=== PATIENT | male | born 1960 | race Caucasian/White ===

== ENCOUNTER → 2025-02-05 | Outpatient (CLI) | payer BC ==
[2025-02-05 10:10] LABS: Partial Thromboplastin Time 24.9 sec (22.0-30.0); Prothrombin Time 10.8 sec (10.0-12.5)
[2025-02-05 14:55] LABS: HCT 49.4 % (39.6-50.0); HGB 16.1 g/dL (13.0-17.0); MCH 29.6 pg (27.0-32.0); MCHC 32.6 g/dL (32.0-37.0); MCV 90.8 FL (80.0-97.0); Mean Platelet Volume 11.3 FL (9.5-12.2); NRBC Per 100 WBC 0 X 10*3/uL (0.00-0.01); Platelet Count 271 X 10*3/uL (140-440); RBC 5.44 X 10*6/uL (4.40-5.60); RDW 13.9 % (11.5-14.5); WBC 8.99 X 10*3/uL (4.50-10.00)
[2025-02-05 15:16] LABS: ALT 12 U/L (10-49); AST 17 U/L (14-35); Albumin 3.9 g/dL (3.8-4.9); Albumin/Globulin Ratio 1.95 Ratio (1.60-3.17); Alkaline Phosphatase 62 U/L (41-126); Blood Urea Nitrogen 17.8 mg/dL (9.0-27.0); Calcium 9.3 mg/dL (8.7-10.3); Carbon Dioxide 25.8 mmol/L (21.6-31.8); Chloride 106 mmol/L (96-109); Glucose 102 mg/dL (70-110); Potassium 4.5 mmol/L (3.5-5.5); Sodium 140 mmol/L (135-145); Total Bilirubin 0.4 mg/dL (0.3-1.2); Total Protein 5.9 g/dL (6.2-8.2)
== END | disposition home or self-care (01) ==
LOC: LABPAT 09:03
PROVIDERS: ATTEND Orthopaedic Surgery
DX: Z01.812 Encounter for preprocedural laboratory examination (principal); Z22.322 Carrier or suspected carrier of Methicillin resistant Staphylococcus aureus; M16.11 Unilateral primary osteoarthritis, right hip
CPT/HCPCS: 80053; 83036; 85027; 85610; 85730; 86850; 86900; 86901; 87070; 93005

== ENCOUNTER 2025-02-16 05:37 | Day surgery (SDC) | payer BC ==
[2025-02-13 11:24] VITALS: BMI 23.5
[2025-02-16] MEDS: IV FLUID CONTINUATION 1,000 ML IV ONE ×2 (05:57)
[2025-02-16] MEDS: DOCUSATE 100 MG CAP PO PRN (05:59)
[2025-02-16] MEDS: ACETAMINOPHEN TAB 500 MG TAB PO PRN (05:59)
[2025-02-16] MEDS: oxyCODONE ER 10 MG TAB.ER.12H PO PRN (05:59)
[2025-02-16] MEDS ORDERED: TRANEXAMIC 1,000 MG/100ML-NACL 1,000 MG in SALINE 1 100ML.BAG IV PRN (06:00)
[2025-02-16] MEDS ORDERED: TRANEXAMIC 1,000 MG/100ML-NACL 1,000 MG in SALINE 1 100ML.BAG IVPB PRN (06:00)
[2025-02-16] MEDS: FAMOTIDINE 20 MG/2 ML VIAL IVP PRN (06:12)
[2025-02-16] MEDS: ONDANSETRON 4 MG/2 ML VIAL IVP PRN (06:12)
[2025-02-16] MEDS: KETOROLAC 15 MG/ML 1 ML VIAL IVP PRN (06:12)
[2025-02-16] MEDS: DEXAMETHASONE SOD PHOSPHATE 10 MG/ML 1 ML VIAL IV PRN (06:12)
[2025-02-16] MEDS: MIDAZOLAM 2 MG/2 ML VIAL IV PRN (06:24)
[2025-02-16] MEDS: LACTATED RINGERS 1,000 ML IV SCH (06:32)
--- NOTE | 2025-02-16 06:38 | P.ANPRN ---
Procedure Note - Anesthesia - Nerve Block Performed Right Jarvis Single Time Out Performed: Yes Date of Procedure: 02/16/25 Procedure Start Time: : Procedure Stop Time: :28 Location of Patient: PreOp Indication: Acute Post-Operative Pain, Analgesia, Requested by Surgeon Sedation Type: Sedate with meaningful contact maintained Preparation: Sterile Prep Position: Supine Catheter: None Needle Types: Pajunk Needle Gauge: 21 Ultrasound used to visualize needle placement: Yes Ultrasound used to observe medication spread: Yes Injectate: 0.5% Ropivacaine (see comment for volume) ([id number]) Blood Aspirated: No Pain Paresthesia on Injection Noted: No Resistance on Injection: Normal Image Stored and Saved: Yes Events: Uneventful and Well Tolerated
[2025-02-16] MEDS: IPRATROPIUM-ALBUTEROL 3 ML NEB INHALATION STA (06:42)
[2025-02-16] MEDS ORDERED: fentaNYL (PF) 50 MCG/ML 2 ML AMP ONE (06:55)
[2025-02-16] MEDS ORDERED: DEXAMETHASONE SOD PHOSPHATE 4 MG/ML 1 ML VIAL ONE (06:55)
[2025-02-16] MEDS ORDERED: SUCCINYLCHOLINE CHLORIDE 200 MG/10 ML VIAL IV ONE (06:55)
[2025-02-16] MEDS ORDERED: PROPOFOL 10 MG/ML 20 ML VIAL IV ONE (06:55)
[2025-02-16] MEDS ORDERED: ePHEDrine 50 MG/ML 1 ML VIAL ONE (06:55)
[2025-02-16] MEDS ORDERED: GLYCOPYRROLATE 0.2 MG/ML 2 ML VIAL ONE (06:55)
[2025-02-16] MEDS ORDERED: PHENYLEPHRINE-0.9% NACL SYG 1,000 MCG/10 ML SYRINGE ONE (06:55)
[2025-02-16] MEDS ORDERED: NEOSTIGMINE 1 MG/ML 10 ML VIAL ONE (06:55)
[2025-02-16] MEDS ORDERED: ROPIVACAINE 5 MG/ML 30 ML VIAL ONE (06:55)
[2025-02-16] MEDS ORDERED: TRANEXAMIC 1,000 MG/100ML-NACL PREMIX BAG ONE (06:55)
[2025-02-16] MEDS ORDERED: LIDOCAINE 1% INJ 10MG/ML (20 ML MDV) ONE (06:55)
[2025-02-16] MEDS ORDERED: ROCURONIUM 10 MG/ML (5 ML VIAL) IV ONE (06:55)
[2025-02-16] MEDS: ceFAZolin 2 GM in DEXTROSE 5% IN WATER 50 ML IVPB PRN (07:00)
[2025-02-16] MEDS ORDERED: HYDROmorphone 0.5 MG/0.5 ML SYRINGE IVP PRN ×3 (07:00→08:41)
[2025-02-16] MEDS: ROPIVACAINE/EPI/CLONIDINE/KET 50 ML SYRINGE MISCELLANE PRN (07:32)
[2025-02-16] MEDS: LACTATED RINGERS 1,000 ML IV ONE (08:22)
[2025-02-16] MEDS ORDERED: diazePAM 5 MG TAB PO PRN ×2 (08:41)
[2025-02-16] MEDS ORDERED: HYDROcodone/APAP 10-325MG 1 EACH TAB PO PRN (08:41)
[2025-02-16] MEDS ORDERED: NALOXONE 0.4 MG/ML 1 ML VIAL IV PRN (08:41)
[2025-02-16] MEDS ORDERED: HYDROmorphone 2 MG/ML 1 ML SYRINGE IVP PRN (08:41)
[2025-02-16] MEDS ORDERED: MAGNESIUM HYDROXIDE 2,400 MG/30 ML CUP PO PRN (08:41)
[2025-02-16] MEDS ORDERED: TEMAZEPAM 15 MG CAP PO PRN (08:41)
[2025-02-16] MEDS ORDERED: hydrOXYzine pamoate 25 MG CAP PO PRN (08:41)
[2025-02-16] MEDS ORDERED: ONDANSETRON 4 MG/2 ML VIAL IVP PRN (08:41)
--- NOTE | 2025-02-16 08:41 | P.OP ---
Date of Procedure: 02/16/25 Preoperative Diagnosis: 1. Severe right hip osteoarthritis 2. History of cigarette smoking Postoperative Diagnosis: Same Procedure(s) Performed: Right direct anterior total hip arthroplasty Implants: 1. Daniella Trident II Acetabular Cup, Size #52 2. [place]a Insignia Size #6 Femoral Stem, Standard Offset 3. Biolox delta femoral head, 36 mm, - 5 mm neck Anesthesia: HECTORA, regional Surgeon: Giancarlo Huerta [employer] Vice President #1: Tony Yusuf Estimated Blood Loss (ml): 300 IV fluids (ml): 800 Pathology: none sent Condition: stable Disposition: PACU Indications for Procedure: I had a long discussion with the patient in the office on the potential risks and complications of an elective total hip replacement through a direct anterior approach. Risks discussed include, but are certainly not limited to, risks from anesthesia, superficial infection requiring local wound care or antibiotics, deep fany-prosthetic joint infection and the treatment required to eradicate infection, intraoperative fracture, postoperative periprosthetic fracture, damage to local blood vessels or nerves particularly the lateral femoral cutaneous nerve, delayed wound healing requiring local wound care or possibly surgical debridement, hip dislocation, leg length discrepancy, soft tissue irritation around the total hip implant such as iliopsoas tendinitis or trochanteric bursitis, wear and osteolysis from the implants, squeaking or audible noises, groin pain, thigh pain, heterotopic ossification, stiffness, aseptic loosening of the implants, dissatisfaction with surgical outcome, need for revision surgery, DVT, PE, swelling of the operative extremity, acute coronary event, stroke, failure to thrive, and possibly loss of life or limb. The patient understands that while these are the most common complications after an elective hip replacement there are certainly other less common complications possible. They were given ample time to ask questions regarding the potential complications of a hip replacement. Following our discussion the patient provided their verbal and written consent to go forward with an elective total hip replacement. I had a long discussion with the patient and his in the office on the risks of smoking and elective total joint arthroplasty. He was advised to quit smoking completely before surgery to help lower his risk of complication. At his preoperative appointment he assured me that he was quitting smoking and would not be smoking at the time of surgery. This morning the patient states that he has resumed smoking but has cut back. We discussed both delaying his surgery versus proceeding. The patient was informed of his elevated risk of having a complication particularly delayed wound healing and infection. He also acknowledged that he told me he had quit in the office prior to scheduling surgery. After hearing the potential risks and complications the patient made an informed decision to proceed with surgery this morning. Both the patient and his stated that he would quit smoking in the postoperative period to help lower the risk of complication. Operative Findings: Severe right hip arthritis with complete loss of joint space on the femoral head and acetabulum. Description of Procedure: The patient was identified in the preoperative holding area and the correct hip was marked with my initials. I reviewed the procedure and consent with the patient. All of their questions were answered. The patient was then brought back into the operating room by anesthesia. While on the [facility] anesthesia was administered by the anesthesia team. Preoperative antibiotics and tranexamic acid were also given. After the patient was under anesthesia I examined their ankles to determine their preoperative leg length discrepancy. The skin over the anterior aspect of the hip was shaved to remove hair over the site of planned incision. Both feet and ankles were padded with webril and boots for the Momence were applied. The patient was then carefully transferred onto the Momence table. A perineal post was immediately placed. The arms were placed on arm holders and were well-padded. Both boots were secured to the spars on the Momence table. The patient was positioned so that the pelvis was centered over the post. Nonsterile drapes were applied. A timeout was performed identifying the correct patient, operative extremity, and procedure. At this point fluoroscopy was brought in to take preoperative images of the pelvis and operative hip. Using the standing AP pelvis from the office as a template, a comparable image was obtained with fluoroscopy. A metallic bar was used to create a bi-ischial line for use as a reference to leg length adjustments during the procedure. Global offset was also measured on both the operative and nonoperative leg. Fluoroscopy was then brought out and a pre-scrub using a chlorhexidine scrub brush was performed. The operative limb was then prepped and draped in the standard sterile fashion. An anterior longitudinal incision was made lateral and distal to the ASIS. The skin and subcutaneous tissues were incised sharply. The underlying tensor fascia was identified and incised in its midportion. The fascia was dissected free from the underlying muscle and the muscle belly was retracted. A blunt tipped cobra retractor was placed over the superior neck under the muscle fibers of the gluteus minimus. The deep enveloping fascia of the tensor was incised. The anterior leash of vessels were then identified and cauterized. The fascia between the rectus and the capsule was then incised and the pre-capsular fat was excised. A second Cobra was placed inferior to the neck. The interval between the rectus and iliocapsularis and the hip capsule was developed and a retractor was placed carefully over the anterior rim of the acetabulum. A T-shaped anterior capsulotomy was performed. The superior capsular leaflet was left in place in the inferior capsular flap was excised. The Cobra retractors were placed intracapsularly. We then made a femoral neck osteotomy according to preoperative and intraoperative templating and confirmed the level of the osteotomy using fluoroscopic imaging. The femoral head was removed, passed off to the back table, and sized. The superior capsular flap was excised. Retractors were placed circumferentially exposing the acetabulum. We then circumferentially debrided the acetabulum free of labrum and osteophytes. The pulvinar was removed to fully visualize the cotyloid fossa. We then sequentia lly reamed to achieve peripheral fit and excellent bleeding subchondral bone. The socket was thoroughly irrigated. The acetabular component was impacted into the appropriate position using fluoroscopy to guide version, inclination, and depth of insertion taking care to have a comparable image of the AP pelvis to the standing image taken in the office. An excellent press-fit was achieved and final position was confirmed using fluoroscopy. The press fit was augmented with a bony cancellus dome screw. The liner was then impacted into the socket. Attention was then turned to the femur. The remnant dorsal lateral capsule was excised. The short external rotators were visible and protected. A bone hook was used to confirm appropriate translation of the trochanter away from the acetabulum. The leg was then extended and adducted and the bone hook was used to elevate the femur for broaching. A box osteotome and blunt tipped canal sound was then utilized to gain access to the femoral canal. We then sequentially broached the femur in appropriate anteversion until excellent torsional stability was achieved. The neck cut was brought flush to the trial broach with a calcar planar. A trial neck and head were then placed onto the broach and the hip was atraumatically reduced under direct visualization. External rotation to 90 was performed to assess stability. Fluoroscopy was b rought in. An AP and lateral fluoroscopic image of the proximal femur was obtained to assess position and fill of the trial broach. An AP of the pelvis was then obtained and matched to the preoperative image taken. A bi-ischial bar was then placed and measurements were taken to assess changes in length and offset. The hip was then carefully dislocated, the proximal femur was exposed, and the trial implants were removed. The wound and proximal femur was thoroughly irrigated using sterile saline and pulsatile lavage. The final femoral implant was dispensed and gently tapped into place generating an excellent press-fit. The trunnion was cleansed and the final head was tapped into place to engage the Barrera taper. The acetabulum was irrigated and visualized to be free of debris. The hip was carefully reduced. Stability was checked clinically with external rotation to 90 and there was no evidence of instability. Final fluoroscopic images were taken. The wound was then thoroughly irrigated and soaked with a dilute Betadine rinse for 3 minutes. 3 L of sterile saline was irrigated through the wound using pulsatile lavage. Local anesthetic cocktail was injected into the soft tissues around the surgical field. The wound was then closed in layers. A sterile dressing was placed over the surgical incision. The drapes were taken down and the patient was carefully transferred off of the Momence table. Following removal of the boots the leg lengths felt acceptable. The patient was then taken to recovery room having tolerated the procedure well. Tony Yusuf PA-C was required as a skilled ssn/ssbn assistant navigator due to the complexity of surgery for patient positioning, draping, exposure, retraction, closure of wound and application of dressing. PLAN: The patient can weight-bear as tolerated on the operative extremity. 2 doses of postoperative antibiotics. DVT prophylaxis with aspirin 81 mg twice a day based on preoperative risk stratification. Physical therapy for gait training.
--- NOTE | 2025-02-16 08:43 | FL ---
EXAMINATION TYPE: FL guidance operating room, XR Hip Limited RT DATE OF EXAM: 02/16/2025 8:38 AM COMPARISON: Pre Operative Images if available both CT/MRI or plain film CLINICAL INDICATION: Male, 64 years old with history of Rt Hip-Ant; TECHNIQUE: FL guidance operating room, XR Hip Limited RT, multiple fluoroscopic images provided for p rocedure. DAP: 1.7868 mGym2 Gycm2 uGym2 cGycm2 or equivalent. FINDINGS: Fluoroscopic images during internal fixation/arthroplasty demonstrate hardware in appropriate positio n. Hardware appears intact. No immediate complication identified. IMPRESSION: 1. No evidence for intraoperative complication. 2. Please see the operative/procedural note for further details. [facility], , 02/16/2025 8:41 AM
[2025-02-16] MEDS ORDERED: NICOTINE 21MG/24HR PATCH TRANSDERM PRN (12:27)
--- NOTE | 2025-02-16 12:28 | P.CONS ---
History of Present Illness - Reason for Consult Consult date: 02/16/25 Medical Management - History of Present Illness History of present illness; 64-year-old man with PMH of hypertension, cataracts and is a current 1 pack/day cigarette smoker with been following with Dr. Huerta for osteoarthritis of his right hip. Presented today to undergo scheduled right total hip arthroplasty. Patient is now postop with no known surgical complications. Patient is sitting up in bed resting with no complaints of pain. Patient reports absence of fever, chills, weight loss, chest pain, palpitations, diaphoresis, dyspnea, cough, nausea, vomiting, constipation, diarrhea, abdominal pain, weakness, myalgia, dizziness, headache, and dysuria. Internal medicine was consulted for medical management. Initial lab workup from 02/05/2025 showed WBCs 8.99, hemoglobin 16.1, hematocrit 49.4, platelet 271; 140, potassium 4.5, BUN 17.8, creatinine 1.0, calcium 9.3, total bilirubin 0.4, AST 17, ALT 12, alkaline phosphatase 62 Postoperative hip x-ray independently read and reviewed showed no evidence of intraoperative complication and hardware intact and in the appropriate position REVIEW OF SYSTEMS: All systems reviewed, pertinent positives and negatives noted in HPI. All other symptoms are negative. PHYSICAL EXAMINATION: Vitals reviewed GENERAL: No acute distress. Well developed, well nourished. HEENT: Pupils are round and equally reacting to light. EOMI. No scleral icterus. Normocephalic, atraumatic. No pharyngeal erythema. No thyromegaly. CARDIOVASCULAR: S1 and S2 present. No murmurs, rubs, or gallops. PULMONARY: Chest is clear to auscultation, no wheezing, rhonchi, or crackles. ABDOMEN: Soft, nontender, nondistended, normoactive bowel sounds. No palpable organomegaly. MUSCULOSKELETAL: No apparent joint swelling and deformities. Bandage over the right hip without erythema or drainage EXTREMITIES: No apparent cyanosis, clubbing, or pedal edema. NEUROLOGICAL: The patient is alert and oriented x3, Gross neurological examination did not reveal any focal deficits. 5/5 strength bilateral UE and LE. SKIN: No apparent rashes. Assessment and plan 64-year-old man with PMH of hypertension, cataracts and is a current 1 pack/day cigarette smoker with been following with Dr. Huerta for osteoarthritis of his right hip. Presented today to undergo scheduled right total hip arthroplasty. Chronic Medical Conditions #Essential hypertension -Hold home LisinoprilHCTZ 10-12.5 mg, reassess BP tomorrow morning -BMP pending #Tobacco addiction -Currently smokes 1 packs daily -Counseled patient on smoking cessation -Denied desire for nicotine patch, will make 21mg/24hr patch available as needed #Total right hip arthroplasty -Pain management and DVT prophylaxis per primary surgical team - CMP pending He is medically optimized for discharge. We will continue to follow for the duration of his stay. Thank you very much for this consult. F: IV LR 20 cc/hr E: Replete as needed N: Regular diet DVT ppx: per primary surgical team Code status: Full code Patient is stable from medical stand point Follow up CBC and BMP in AM Dictation was produced using [employer] dictation software. Please excuse any grammatical, word or spelling errors. Derian Cleary MD PGY-1 IM I have seen and evaluated the patient today. Discussed with the resident and agree with the residents finding and plan as documented in the resident's note. Changes highlighted in blue font. Past Medical History Past Medical History: Hypertension, Osteoarthritis (OA) History of Any Multi-Drug Resistant Organisms: None Reported Past Surgical History: Tonsillectomy Past Anesthesia/Blood Transfusion Reactions: No Reported Reaction Smoking Status: Current every day smoker - Past Family History Father Family Medical History: Cancer Additional Family Medical History / Comment(s): SKIN Medications and Allergies Home Medications Medication Instructions Recorded Confirmed Type Acyclovir [Zovirax] 800 mg PO BID PRN 02/13/25 02/16/25 History Elderberry Fruit and Flower [Black 1 each PO DAILY 02/13/25 02/16/25 History Elderberry 575 mg Cap] Lisinopril-Hctz 10-12.5 mg 1 tab PO DAILY 02/13/25 02/16/25 History [Zestoretic 10-12.5] Aspirin 81 mg PO BID #60 tab 02/16/25 Rx Doxycycline Monohydrate 100 mg PO BID-W/MEALS 14 Days #28 02/16/25 Rx cap HYDROcodone/APAP 5-325MG [[place] 5] 1 each PO Q6HR PRN #28 tab 02/16/25 Rx Omeprazole 20 mg PO DAILY #30 tab 02/16/25 Rx Sennosides-Docusate Sodium 1 tab PO BID PRN #60 tablet 02/16/25 Rx [Senokot-S] Allergies Allergy/AdvReac Type Severity Reaction Status Date / Time latex AdvReac Itching Verified 02/16/25 05:51 CATS AdvReac Itching Uncoded 02/16/25 05:51 Physical Exam Vitals: Vital Signs Temp Pulse Pulse Pulse Resp BP Pulse Ox 02/16/25 10:23 97.4 F L 59 L 17 99/62 95 02/16/25 09:50 58 L 17 95/58 93 L 02/16/25 09:35 57 L 16 94/53 93 L 02/16/25 09:25 98/56 02/16/25 09:20 65 15 87/54 97 02/16/25 09:05 96.9 F L 62 16 90/55 99 02/16/25 06:30 75 16 112/76 100 02/16/25 06:04 98.3 F 59 L 16 140/79 99 Intake and Output 02/15/25 02/16/25 02/16/25 22:59 06:59 14:59 Intake Total 300 950 Output Total 100 Balance 300 850 Intake: IV 300 950 Output: Estimated Blood Loss 100 Other: Weight 58.1 kg
[2025-02-16] MEDS: MULTIVITAMINS, THERA 1 EACH TAB PO SCH (14:12)
--- NOTE | 2025-02-16 15:18 | XR ---
EXAMINATION TYPE: XR Hip Limited RT DATE OF EXAM: 02/16/2025 3:10 PM COMPARISON: None. CLINICAL INDICATION: Male, 64 years old with history of Fall, right hip, pain TECHNIQUE: AP view(s) obtained. FINDINGS: Right femoral prosthesis has been placed with acetabular component. Soft tissue postsurgical changes are noted. No acute fractures evident. IMPRESSION: 1. No acute fracture post right hip replacement. [facility], , 02/16/2025 3:15 PM
[2025-02-16 15:23] VITALS: RESP 17
[2025-02-16] MEDS: ceFAZolin 2 GM in DEXTROSE 5% IN WATER 50 ML IVPB SCH (17:05)
[2025-02-16] MEDS: SENNOSIDES-DOCUSATE SODIUM 1 EACH TAB PO SCH (21:08)
[2025-02-16] MEDS: ASPIRIN 81 MG PO SCH (21:08)
[2025-02-16] MEDS: SODIUM CHLORIDE 0.9% 1,000 ML IV SCH (21:09)
[2025-02-17] MEDS: HYDROcodone/APAP 5-325MG 1 EACH TAB PO PRN (05:14)
[2025-02-17 05:54] LABS: ALT 11 U/L (4-49); AST 28 U/L (17-59); African American GFR (CKD) >90 (>60 ml/min/1.73 sqM); Albumin 2.9 g/dL (3.5-5.0); Albumin/Globulin Ratio 1.5; Alkaline Phosphatase 48 U/L (38-126); Anion Gap 3 mmol/L; Blood Urea Nitrogen 22 mg/dL (9-20); Calcium 8.9 mg/dL (8.4-10.2); Carbon Dioxide 29 mmol/L (22-30); Chloride 101 mmol/L (98-107); Glucose 87 mg/dL (74-99); Non-African American GFR(CKD) 83 (>60 ml/min/1.73 sqM); Potassium 4.1 mmol/L (3.5-5.1); Sodium 133 mmol/L (137-145); Total Bilirubin 0.5 mg/dL (0.2-1.3); Total Protein 4.9 g/dL (6.3-8.2)
[2025-02-17] MEDS: FAMOTIDINE 20 MG TAB PO SCH (08:28)
--- NOTE | 2025-02-17 08:55 | P.DS ---
Providers Date of admission: 02/16/2025 Attending physician: Giancarlo Huerta Consults: 02/16/25 08:41 Consult Physician Routine Consulting Provider: Lusi Gonzales Consult Reason/Comments: post op medical management Do you want consulting provider notified?: Yes Primary care physician: [facility] Course: The patient is a very pleasant 64-year-old male who underwent an uncomplicated total hip replacement yesterday. Following surgery he was transferred to the orthopedic floor. While on the floor and in the bathroom he slid to the floor gently falling. He had minimal pain in his hip but an x-ray was taken. This showed no obvious fracture. He has since done well. He has been up with a walker. He was seen this morning and had minimal pain in his hip. His dressing was intact. Femoral nerve function was intact. He worked with physical therapy and did well. Internal medicine was consulted and evaluated the patient. He was ultimately cleared for discharge home. Patient Condition at Discharge: Good Plan - Discharge Summary Discharge Rx Participant: No New Discharge Prescriptions: New Doxycycline Monohydrate 100 mg PO BID-W/MEALS 14 Days #28 cap HYDROcodone/APAP 5-325MG [[place] 5] 1 each PO Q6HR PRN #28 tab PRN Reason: Pain Sennosides-Docusate Sodium [Senokot-S] 1 tab PO BID PRN #60 tablet PRN Reason: Constipation Aspirin 81 mg PO BID #60 tab Omeprazole 20 mg PO DAILY #30 tab Continue Lisinopril-Hctz 10-12.5 mg [Zestoretic 10-12.5] 1 tab PO DAILY Elderberry Fruit and Flower [Black Elderberry 575 mg Cap] 1 each PO DAILY Acyclovir [Zovirax] 800 mg PO BID PRN PRN Reason: Cold Sores Discharge Medication List Acyclovir [Zovirax] 800 mg PO BID PRN 02/13/25 [History] Elderberry Fruit and Flower [Black Elderberry 575 mg Cap] 1 each PO DAILY 02/13/25 [History] Lisinopril-Hctz 10-12.5 mg [Zestoretic 10-12.5] 1 tab PO DAILY 02/13/25 [History] Aspirin 81 mg PO BID #60 tab 02/16/25 [Rx] Doxycycline Monohydrate 100 mg PO BID-W/MEALS 14 Days #28 cap 02/16/25 [Rx] HYDROcodone/APAP 5-325MG [[place] 5] 1 each PO Q6HR PRN #28 tab 02/16/25 [Rx] Omeprazole 20 mg PO DAILY #30 tab 02/16/25 [Rx] Sennosides-Docusate Sodium [Senokot-S] 1 tab PO BID PRN #60 tablet 02/16/25 [Rx] Follow up Appointment(s)/Referral(s): Giancarlo Huerta MD [Medical Doctor] - 2 Weeks Activity/Diet/Wound Care/Special Instructions: [facility] will call you to schedule your in home physical therapy visits. Call them if you have any questions about home physical therapy: [phone]. 1. Weight-bear as tolerated on your operative extremity unless instructed otherwise. Use a walker or other assistive device to ambulate. 2. Leave surgical dressing in place. If your dressing becomes saturated with blood, there is drainage, or the dressing becomes loose please contact the office. 3. It is okay to shower with your surgical dressing, but do not submerge in water (no hot tubs, bath's, swimming etc.) 4. Make sure to take her blood clot prevention medication as prescribed (aspirin, Eliquis, Xarelto, and Plavix are commonly prescribed medications for blood clot prevention) 5. While taking [place] or Percocet for pain make sure you're taking a stool softener (Colace) and drink lots of water. 6. Keep all follow-up appointments as scheduled. You will usually be seen in 1-2 weeks following surgery. 7. Please contact the office with any questions or concerns [phone] Discharge Disposition: HOME WITH HOME HEALTH SERVICES
[2025-02-17] MEDS ORDERED: LISINOPRIL-HCTZ 10-12.5 MG 1 EACH TAB PO SCH (09:00)
--- NOTE | 2025-02-17 09:02 | P.PN ---
Subjective Progress Note Date: 02/17/25 History of present illness; 64-year-old man with PMH of hypertension, cataracts and is a current 1 pack/day cigarette smoker with been following with Dr. Huerta for osteoarthritis of his right hip. Presented today to undergo scheduled right total hip arthroplasty. Patient is now postop with no known surgical complications. Patient is sitting up in bed resting with no complaints of pain. Patient reports absence of fever, chills, weight loss, chest pain, palpitations, diaphoresis, dyspnea, cough, nausea, vomiting, constipation, diarrhea, abdominal pain, weakness, myalgia, dizziness, headache, and dysuria. Internal medicine was consulted for medical management. 02/20 - He is seen and examined at bedside this morning. no acute events overnight, no acute complaints this morning. REVIEW OF SYSTEMS: Pertinent positives and negatives noted in HPI. Physical Exam: Vitals reviewed GENERAL: No acute distress. Well developed, well nourished. HEENT: Pupils are round and equally reacting to light. EOMI. No scleral icterus. Normocephalic, atraumatic. No pharyngeal erythema. No thyromegaly. CARDIOVASCULAR: S1 and S2 present. No murmurs, rubs, or gallops. PULMONARY: Chest is clear to auscultation, no wheezing, rhonchi, or crackles. ABDOMEN: Soft, nontender, nondistended, normoactive bowel sounds. No palpable organomegaly. MUSCULOSKELETAL: No apparent joint swelling and deformities. Bandage over the right hip without erythema or drainage EXTREMITIES: No apparent cyanosis, clubbing, or pedal edema. NEUROLOGICAL: The patient is alert and oriented x3, Gross neurological examination did not reveal any focal deficits. 5/5 strength bilateral UE and LE. SKIN: No apparent rashes. Data Received Today: Labs: Sodium 133, potassium 4.1, BUN 22, creatinine 0.97, calcium 8.9, total bilirubin 0.5, AST 28, ALT 11, alkaline phosphatase 48 Imagining: No new imaging today Assessment and plan 64-year-old man with PMH of hypertension, cataracts and is a current 1 pack/day cigarette smoker with been following with Dr. Huerta for osteoarthritis of his right hip. Presented today to undergo scheduled right total hip arthroplasty. Chronic Medical Conditions #Essential hypertension #Mild hyponatremia -Continue home lisinopril and hydrochlorothiazide -CMP from this morning read and reviewed #Tobacco addiction -Currently smokes 1 packs daily -Counseled patient on smoking cessation -Denied desire for nicotine patch, will make 21mg/24hr patch available as needed #Total right hip arthroplasty #Mild leukocytosis, reactive #Mild acute blood loss anemia, anticipated-surgery -Pain management and DVT prophylaxis per primary surgical team -CMP from this morning read and reviewed He is medically optimized for discharge. We will continue to follow for the duration of his stay. Thank you very much for this consult. F: IV LR 20 cc/hr E: Replete as needed N: Regular diet DVT ppx: Per primary surgical team Code status: Full code Anticipated discharge place: Home Anticipated discharge time: 24-48 hours Dictation was produced using [employer] dictation software. please excuse any grammatical, word or spelling errors. Derian Cleary MD PGY-1 IM I have seen and evaluated the patient today. Discussed with the resident and agree with the residents finding and plan as documented in the resident's note. Changes highlighted in blue font. Objective - Vital Signs Vital signs: Vital Signs Temp 98.2 F 02/17/25 01:52 Pulse 60 02/17/25 01:52 Resp 17 02/17/25 01:52 BP 111/57 02/17/25 01:52 Pulse Ox 96 02/17/25 01:52 FiO2 Intake & Output 02/16/25 02/17/25 02/17/25 18:59 06:59 18:59 Intake Total 950 Output Total 300 1100 Balance 650 -1100 Weight 58.1 kg Intake: IV 950 Output: Urine 200 1100 Estimated Blood Loss 100 Other: Voiding Method Urinal # Voids 1 3 - Labs CBC & Chem 7: 02/17/25 05:04 02/17/25 05:04 Labs: Abnormal Lab Results - Last 24 Hours (Table) 02/17/25 Range/Units 05:04 Sodium 133 L (137-145) mmol/L BUN 22 H (9-20) mg/dL Total Protein 4.9 L (6.3-8.2) g/dL Albumin 2.9 L (3.5-5.0) g/dL
[2025-02-17 09:30] LABS: Basophils # (A) 0.07 X 10*3/uL (0.00-0.10); Basophils % (A) 0.5 %; Eosinophils # (A) 0.06 X 10*3/uL (0.04-0.35); Eosinophils % (A) 0.4 %; HCT 36.4 % (39.6-50.0); Lymphocytes # (A) 2.87 X 10*3/uL (0.90-5.00); Lymphocytes % (A) 19.4 %; MCH 29.5 pg (27.0-32.0); MCV 89.4 FL (80.0-97.0); Mean Platelet Volume 10.6 FL (9.5-12.2); Monocytes % (A) 9.5 %; NRBC Per 100 WBC 0 X 10*3/uL (0.00-0.01); Neutrophils # (A) 10.31 X 10*3/uL (1.80-7.70); Neutrophils % (A) 69.9 %; Platelet Count 223 X 10*3/uL (140-440); RBC 4.07 X 10*6/uL (4.40-5.60); RDW 13.4 % (11.5-14.5); WBC 14.76 X 10*3/uL (4.50-10.00)
[2025-02-17 09:54] VITALS: PULSE 55
[2025-02-17 10:44] VITALS: BP 109/65; TEMP 97.7
== END 2025-02-17 11:03 | disposition home health service (06) ==
LOC: OR 05:37 → 4SSUR 08:56 → OR 02-17 11:03
PROVIDERS: ATTEND Orthopaedic Surgery
DX: M16.11 Unilateral primary osteoarthritis, right hip (principal); D62 Acute posthemorrhagic anemia; D72.829 Elevated white blood cell count, unspecified; E87.1 Hypo-osmolality and hyponatremia; G89.18 Other acute postprocedural pain; I10 Essential (primary) hypertension; F17.210 Nicotine dependence, cigarettes, uncomplicated; Z79.82 Long term (current) use of aspirin; Z79.899 Other long term (current) drug therapy; Z90.89 Acquired absence of other organs
CPT/HCPCS: 27130; 97116; 97161; 64473; 80053; 85025; 73501; C1776; J2250; J0330; J1100 ×2; J2710; J0690; J2405; J2003; J3010; J3490; J2795; J1885; J2704; J2371; J1596

== ENCOUNTER 2025-03-21 07:56 | Day surgery (SDC) | payer BC ==
[2025-03-16 15:48] VITALS: BMI 24.0
[~2025-03-21 07:56] MED LIST: TETRACAINE 0.5% OPHTH (PF) DROPS 4 ML BTL OP PRN
[2025-03-21] MEDS: CYCLOPENTOLATE 1% OPHTH SOLN 2 ML BTL OP PRN (08:15)
[2025-03-21] MEDS: LACTATED RINGERS 1,000 ML IV ONE (08:18)
[2025-03-21] MEDS: PHENYLEPHRINE 2.5% OPHTH DRP 2ML OP PRN (08:18)
[2025-03-21 08:19] VITALS: TEMP 97.8
[2025-03-21] MEDS: LACTATED RINGERS 1,000 ML IV SCH (08:29)
[2025-03-21] MEDS ORDERED: fentaNYL (PF) 50 MCG/ML 2 ML AMP ONE (10:30)
[2025-03-21] MEDS ORDERED: MIDAZOLAM 2 MG/2 ML VIAL ONE (10:30)
[2025-03-21] MEDS: MOXIFLOXACIN HCL 0.5% DROPS 3 ML BTL OP PRN (10:52)
[2025-03-21] MEDS: TIMOLOL 0.5% OPHTH DROPS 5 ML BTL OP PRN (10:52)
[2025-03-21 11:26] VITALS: BP 126/78; PULSE 55; RESP 16
[2025-03-21] MEDS: HYALURONATE SODIUM INTRAOCULAR 1 EACH SYRINGE (12MG/ML) INTRAOCULA ONE (12:12)
[2025-03-21] MEDS: BALANCED SALT IRRIG SOLN COMB2 15 ML IRRIG.SOLN INTRAOCULA ONE (12:13)
[2025-03-21] MEDS: LIDOCAINE 1% (PF) 10MG/ML VIAL SQ ONE (12:13)
--- NOTE | 2025-03-21 13:24 | P.OP ---
Date of Procedure: 03/21/25 Preoperative Diagnosis: NS & CS & PSC Postoperative Diagnosis: same Procedure(s) Performed: PIOL, OS Implants: [id number] Anesthesia: MAC Surgeon: Saul Parra Pathology: none sent Condition: stable Disposition: same day Indications for Procedure: blurry vision Operative Findings: no complications
--- NOTE | 2025-03-22 00:09 | OP ---
OPERATIVE REPORT DATE OF SERVICE : 03/21/2025 PREOPERATIVE DIAGNOSES: Nuclear sclerosis, cortical sclerosis, posterior subcapsular cataract. POSTOPERATIVE DIAGNOSES: Nuclear sclerosis, cortical sclerosis, posterior subcapsular cataract. OPERATION: Phacoemulsification of cataract and interocular lens implant of the left eye. ESTIMATED BLOOD LOSS: Zero. SPECIMEN TAKEN: None. NARRATIVE: After obtaining the appropriate consent, the patient was brought to the operating room where the patient was placed under cardiac monitoring and prepped and draped in the usual sterile manner. At the 5 o'clock position, a 15-degree super sharp blade was used to create a paracentesis followed by instillation of 1% Xylocaine MPF 50:50 mix with BSS into the anterior chamber. This was followed by Duovisc viscoelastic to stabilize the anterior chamber. At the 3 o'clock position a self-sealing corneal flap incision was created using 2.8 mm pablo keratome. A cystotome was used to initiate a continuous tear capsulorrhexis which was completed with the Utrata forceps. A Binkhorst cannula was used to hydrodissect the lens nucleus followed by hydrodelineation. Phacoemulsification of the lens was performed utilizing phacochop in 21.63 seconds at 17.9% power. The remaining cortical material was removed using the irrigation aspiration mode followed by additional 1% Xylocaine MPF into the anterior chamber followed by viscoelastic to stabilize the capsular bag. A Tyler and Tyler DCB00 19.0 diopters posterior chamber lens was placed into the capsular bag without difficulty. The remaining viscoelastic material was removed from the anterior chamber with the irrigation/aspiration. Balanced salt solution was used to normalize the intraocular pressure. The incision was checked for watertight integrity. The patient then received 2 drops of 0.5% timolol followed by 2 drops Vigamox, was lightly patched and shielded in the usual manner. There were no complications from the procedure. The patient tolerated the procedure well and was returned to recovery in good condition. MMODL / IJN: [id number] /
== END 2025-03-21 11:38 | disposition home or self-care (01) ==
LOC: OR 07:56
PROVIDERS: ATTEND Ophthalmology
DX: H25.12 Age-related nuclear cataract, left eye (principal); H25.11 Age-related nuclear cataract, right eye; H25.012 Cortical age-related cataract, left eye; H25.011 Cortical age-related cataract, right eye; H25.041 Posterior subcapsular polar age-related cataract, right eye; H25.042 Posterior subcapsular polar age-related cataract, left eye; H00.026 Hordeolum internum left eye, unspecified eyelid; H00.023 Hordeolum internum right eye, unspecified eyelid; H31.093 Other chorioretinal scars, bilateral; H52.13 Myopia, bilateral; H52.223 Regular astigmatism, bilateral; H52.4 Presbyopia; I10 Essential (primary) hypertension; F17.210 Nicotine dependence, cigarettes, uncomplicated; M19.90 Unspecified osteoarthritis, unspecified site; Z91.040 Latex allergy status; Z79.82 Long term (current) use of aspirin; Z79.899 Other long term (current) drug therapy
CPT/HCPCS: 66984; V2632; J2250; J3010; J2003